=== PATIENT | female | born 1985 | race Two or more races ===

== ENCOUNTER 2024-08-27 19:55 | Emergency (ER) | payer OTHER ==
[~2024-08-27] VITALS: Ht 175.3 cm; Wt 81.6 kg
[2024-08-27] MEDS ORDERED: METHYLPREDNISOLONE SOD SUCC 125 MG VIAL ONE (21:07)
[2024-08-27] MEDS ORDERED: CEFTRIAXONE SODIUM 2,000 MG VIAL ONE (21:07)
[2024-08-27] MEDS ORDERED: CETIRIZINE HCL 5MG/5ML BLIST.PACK PO ONE (21:07)
[2024-08-27] MEDS ORDERED: BENZONATATE 200 MG CAPSULE PO ONE (21:15)
[2024-08-27] MEDS ORDERED: CEFTRIAXONE SODIUM 1,000 MG VIAL IM ONE (21:15)
[2024-08-27] MEDS ORDERED: METHYLPREDNISOLONE SOD SUCC 125 MG VIAL IM ONE (21:15)
[2024-08-27] MEDS ORDERED: CETIRIZINE HCL 5 MG/5 ML ML PO ONE (21:15)
[2024-08-27 21:56] LABS: BASO % 0.8 % (0.1-1.2); EOS # 0.07 (0.04-0.54); EOS % 1.4 % (0.7-7.0); HEMATOCRIT 36.5 % (34.1-44.9); HEMOGLOBIN 11.9 g/dL (11.2-15.7); LYMPH # 1.26 (1.18-3.74); LYMPH % 24.7 % (19.3-53.1); MEAN CORPUSCULAR HEMOGLOBIN 26.2 pg (25.6-32.2); MONO # 1.21 (0.24-0.82); NEUT # 2.51 (1.56-6.13); PLATELET COUNT 301 K/uL (163-369); RED BLOOD COUNT 4.54 M/uL (3.93-5.22)
[2024-08-27 22:28] LABS: MONO % 23.7 % (4.7-12.5)
[2024-08-27 22:56] LABS: INFLUENZA A AG NEGATIVE (NEGATIVE); INFLUENZA B AG NEGATIVE (NEGATIVE)
[2024-08-27 23:02] LABS: COVID-19 AG NEGATIVE (NEGATIVE)
[2024-08-27] MEDS ORDERED: PEPCID AC20 MG PO (23:10)
[2024-08-27] MEDS ORDERED: BENZONATATE200 M1 PO (23:10)
[2024-08-27] MEDS ORDERED: SINGULAIR10 MG PO (23:10)
[2024-08-27] MEDS ORDERED: LEVALBUTER0.63 MG/3 IH (23:10)
[2024-08-27] MEDS ORDERED: ZOVIRAX800 MG PO (23:12)
== END 2024-08-27 23:36 | disposition home or self-care (01) ==
LOC: ER 21:10
PROVIDERS: General Practice
DX: J00 Acute nasopharyngitis [common cold] (principal); Z20.822 Contact with and (suspected) exposure to COVID-19